=== PATIENT | male | born 2000 | race Caucasian/White ===

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

== ENCOUNTER 2020-09-27 08:46 | Emergency (ER) | payer OTHER ==
[~2020-09-27] VITALS: Ht 180.3 cm; Wt 81.8 kg
[2020-09-27] MEDS ORDERED: IBUPROFEN 600 MG TABLET PO ONE (11:15)
[2020-09-27 12:11] VITALS: BP 120/80
== END 2020-09-27 12:12 | disposition home or self-care (01) ==
LOC: EMS 08:55
DX: M79.10 Myalgia, unspecified site (principal); Z20.822 Contact with and (suspected) exposure to COVID-19
CPT/HCPCS: 99283; U0003

== ENCOUNTER 2023-07-11 08:48 | Emergency (ER) | payer OTHER ==
[~2023-07-11] VITALS: Ht 165.1 cm; Wt 54.5 kg
[2023-07-11 08:56] VITALS: BP 119/67; PULSE 60; RESP 12; TEMP 97.7
[2023-07-11 10:31] LABS: BASOPHILS % (AUTO) 0.3 % (0.0-2.0); EOSINOPHILS % (AUTO) 1.9 % (1.0-6.0); HEMATOCRIT 42.8 % (41-53); HEMOGLOBIN 13.8 g/dL (13.5-17.5); LYMPHOCYTES # (AUTO) 1.3 K/uL (1.0-4.8); LYMPHOCYTES % (AUTO) 21.6 % (22.0-44.0); MEAN CORPUSCULAR HEMOGLOBIN 25.6 pg (26.0-34.0); MEAN CORPUSCULAR HGB CONC 32.3 G/dL (31.0-37.0); MEAN CORPUSCULAR VOLUME 79 fL (80-100); MONOCYTES # (AUTO) 0.4 K/uL (0.1-1.0); MONOCYTES % (AUTO) 5.7 % (2.0-9.0); NEUTROPHILS # (AUTO) 4.4 K/uL (1.8-7.7); NEUTROPHILS % (AUTO) 70.5 % (40.0-70.0); PLATELET COUNT (AUTO) 255 K/uL (150-450); RED BLOOD CELL COUNT(AUTO) 5.41 MIL/uL (4.50-5.90); RED CELL DISTRIBUTION WIDTH 14.1 % (11.5-14.5); WHITE BLOOD COUNT (AUTO) 6.2 K/uL (4.5-11.0)
[2023-07-11 10:39] LABS: ANION GAP 5 mmol/L (8-16); CALCIUM, TOTAL 9.2 mg/dL (8.8-10.5); CARBON DIOXIDE 30 mmol/L (22-29); CHLORIDE 103 mmol/L (98-107); CREATININE 0.76 mg/dL (0.60-1.30); GLOMERULAR FILTR. RATE CALC > 60 mL/min (>60); GLUCOSE,RANDOM 106 mg/dL (70-110); POTASSIUM 4.4 mmol/L (3.5-5.1); SODIUM SERUM 138 mmol/L (136-145); UREA NITROGEN, BLOOD 14 mg/dL (7-18)
[2023-07-11] MEDS ORDERED: ONDA-104 PO (11:54)
== END 2023-07-11 12:09 | disposition home or self-care (01) ==
LOC: EMS 08:48
DX: R53.1 Weakness (principal)
CPT/HCPCS: 80048; 85025; 99283

== ENCOUNTER 2023-07-20 08:15 | Emergency (ER) | payer OTHER ==
[~2023-07-20] VITALS: Ht 162.6 cm; Wt 61.4 kg
[~2023-07-20 08:15] MED LIST: ONDA-104 PO
[2023-07-20 08:31] VITALS: TEMP 98.3
[2023-07-20] MEDS: ONDANSETRON HCL 4 MG TABLET PO ONE (09:18)
[2023-07-20] MEDS: HALOPERIDOL 5 MG TABLET PO ONE (09:18)
[2023-07-20 09:21] LABS: BASOPHILS % (AUTO) 1.2 % (0.0-2.0); EOSINOPHILS % (AUTO) 1.6 % (1.0-6.0); HEMATOCRIT 43.2 % (41-53); HEMOGLOBIN 14.2 g/dL (13.5-17.5); LYMPHOCYTES # (AUTO) 1.3 K/uL (1.0-4.8); LYMPHOCYTES % (AUTO) 21.4 % (22.0-44.0); MEAN CORPUSCULAR HEMOGLOBIN 26.1 pg (26.0-34.0); MEAN CORPUSCULAR HGB CONC 32.8 G/dL (31.0-37.0); MEAN CORPUSCULAR VOLUME 80 fL (80-100); MONOCYTES # (AUTO) 0.4 K/uL (0.1-1.0); MONOCYTES % (AUTO) 6.9 % (2.0-9.0); NEUTROPHILS # (AUTO) 4.2 K/uL (1.8-7.7); NEUTROPHILS % (AUTO) 68.9 % (40.0-70.0); PLATELET COUNT (AUTO) 251 K/uL (150-450); RED BLOOD CELL COUNT(AUTO) 5.43 MIL/uL (4.50-5.90); RED CELL DISTRIBUTION WIDTH 14.1 % (11.5-14.5); WHITE BLOOD COUNT (AUTO) 6.1 K/uL (4.5-11.0)
[2023-07-20 09:26] LABS: ANION GAP 6 mmol/L (8-16); CALCIUM, TOTAL 8.9 mg/dL (8.8-10.5); CARBON DIOXIDE 31 mmol/L (22-29); CHLORIDE 105 mmol/L (98-107); CREATININE 0.86 mg/dL (0.60-1.30); GLOMERULAR FILTR. RATE CALC > 60 mL/min (>60); GLUCOSE,RANDOM 107 mg/dL (70-110); POTASSIUM 3.7 mmol/L (3.5-5.1); SODIUM SERUM 142 mmol/L (136-145); UREA NITROGEN, BLOOD 14 mg/dL (7-18)
[2023-07-20 10:14] VITALS: BP 122/68; PULSE 76; RESP 16
== END 2023-07-20 10:16 | disposition home or self-care (01) ==
LOC: EMS 08:15
DX: R11.10 Vomiting, unspecified (principal); F12.90 Cannabis use, unspecified, uncomplicated
CPT/HCPCS: 99283; 80048; 85025; 36415; Q0162

== ENCOUNTER 2023-10-01 17:09 | Emergency (ER) | payer OTHER ==
[~2023-10-01] VITALS: Ht 165.1 cm; Wt 52.3 kg
[2023-10-01 17:11] VITALS: BP 134/81; PULSE 72; RESP 18; TEMP 98
[2023-10-01] MEDS: IBUPROFEN 600 MG TABLET PO ONE (18:23)
== END 2023-10-01 19:05 | disposition home or self-care (01) ==
LOC: EMS 17:09
DX: R59.0 Localized enlarged lymph nodes (principal); F12.90 Cannabis use, unspecified, uncomplicated
CPT/HCPCS: 99282; Z7502; Z7610

== ENCOUNTER 2023-12-24 11:30 | Emergency (ER) | payer OTHER ==
[~2023-12-24] VITALS: Ht 165.1 cm; Wt 52.3 kg
[2023-12-24 11:36] VITALS: TEMP 98.2
[2023-12-24 13:18] LABS: COVID AG,FIA SOURCE NASAL SWAB
[2023-12-24] MEDS ORDERED: GUAIFDM PO (13:37)
[2023-12-24] MEDS ORDERED: IBUP-1554 PO (13:37)
[2023-12-24] MEDS ORDERED: ACET-66 PO (13:37)
[2023-12-24] MEDS: GuaiFENesin/D-METHORPHAN [SUGAR-FREE] 200-20MG/10 ML SYRUP UDCUP PO ONE (13:57)
[2023-12-24] MEDS: ACETAMINOPHEN 500 MG TABLET PO ONE (13:57)
[2023-12-24] MEDS: IBUPROFEN 600 MG TABLET PO ONE (13:57)
[2023-12-24 14:07] LABS: SARS-COV2 (COVID) ANTIGEN,FIA Negative (Negative)
[2023-12-24 14:08] LABS: INFLUENZA TYPE A NEGATIVE FOR TYPE A (NEGATIVE); INFLUENZA TYPE B NEGATIVE FOR TYPE B (NEGATIVE)
[2023-12-24 14:09] LABS: RAPID GROUP A STREP NEGATIVE (NEGATIVE)
[2023-12-24 14:34] VITALS: BP 128/79; PULSE 82; RESP 16; O2SAT 98
== END 2023-12-24 14:39 | disposition home or self-care (01) ==
LOC: EMS 11:30
DX: J06.9 Acute upper respiratory infection, unspecified (principal); J02.8 Acute pharyngitis due to other specified organisms; F12.90 Cannabis use, unspecified, uncomplicated; Z20.822 Contact with and (suspected) exposure to COVID-19
CPT/HCPCS: 87430; 87804; 99284; Z7502; Z7610

== ENCOUNTER 2024-01-31 11:09 | Emergency (ER) | payer OTHER ==
[~2024-01-31] VITALS: Ht 165.1 cm; Wt 54.5 kg
[~2024-01-31 11:09] MED LIST changes: +ACET-66 PO; +GUAIFDM PO; +IBUP-1554 PO; -ONDA-104 PO
[2024-01-31 11:21] VITALS: TEMP 97.3
[2024-01-31] MEDS: ACETAMINOPHEN 500 MG TABLET PO ONE (13:18)
[2024-01-31] MEDS: IBUPROFEN 600 MG TABLET PO ONE (13:19)
[2024-01-31] MEDS ORDERED: METH-659 PO (13:41)
[2024-01-31 14:20] VITALS: BP 122/74; PULSE 88; RESP 18; O2SAT 100
== END 2024-01-31 14:30 | disposition home or self-care (01) ==
LOC: EMS 11:09
DX: S13.9XXA Sprain of joints and ligaments of unspecified parts of neck, initial encounter (principal); M79.18 Myalgia, other site; F12.90 Cannabis use, unspecified, uncomplicated; V49.9XXA Car occupant (driver) (passenger) injured in unspecified traffic accident, initial encounter; Y93.89 Activity, other specified; Y92.410 Unspecified street and highway as the place of occurrence of the external cause; Y99.8 Other external cause status
CPT/HCPCS: 72040; 99283